=== PATIENT | female | born 1990 | race Hispanic/Latino ===

== ENCOUNTER 2021-07-30 16:44 | Emergency (ER) | payer OTHER ==
[2021-07-30 20:01] LABS: SARS-COV-2 RT PCR POSITIVE (NEGATIVE)
--- NOTE | 2021-07-30 20:28 | RAD REPORT ---
EXAM DESCRIPTION: RAD - Chest Single View - 07/30/2021 7:42 pm CLINICAL HISTORY: Cough;Dyspnea COMPARISON: None TECHNIQUE: AP portable chest image was obtained 07/30/2021 7:42 pm . Patient is 37 weeks , abd ominal shielding was utilized. FINDINGS: Lung volumes are low. No dense consolidations seen. There is minimal stranding in the mid right lung field and some minimal patchy opacities are present in the mid left lung field. Trachea is midline. Heart and vasculature are normal. No measurable pleural effusion and no pneumotho rax. No acute bony abnormality seen. No acute aortic findings suspected. IMPRESSION: Patchy bilateral lung parenchymal opacification present potentially artifact of shallow inspiration. Small bilateral pneumonias, including COVID-19 pneumonia, cannot be excluded.
[2021-07-30] MEDS ORDERED: NA CHLORIDE 0.9% 250 ML ONE (21:06)
[2021-07-30] MEDS ORDERED: CASIRIVIMAB/IMDEVIMAB 10 ML VIAL ONE (21:06)
--- NOTE | 2021-07-30 22:14 | EDPHYS ---
Physician Documentation [facility] Name: Nadia Haq Age: 31 yrs Sex: Female : 1990 Arrival Date: 07/30/2021 Time: 16:47 Bed 10 Private MD: ED Physician Vj Cowan HPI: 07/30 21:13 This 31 yrs old Female presents to ER via Ambulatory with complaints of rn Breathing Difficulty, Cough, Chest Pain, 37 wks gestation. 21:13 The patient or guardian reports cough, that is intermittent, described as mild, with no rn sputum, flu symptoms, low-grade fever, myalgias. Onset: The symptoms/episode began/occurred 4 day(s) ago. Severity of symptoms: At their worst the symptoms were moderate, in the emergency department the symptoms are unchanged. Modifying factors: The symptoms are alleviated by nothing, the symptoms are aggravated by nothing. Associated signs and symptoms: Pertinent positives: fever, rhinorrhea, sore throat, Cough. The patient has not experienced similar symptoms in the past. The patient has not recently seen a physician. Patient reports 4 days of cough, congestion, fatigue. Denies any chest pain. Reports deep breath results and coughing but no pain. No hemoptysis. Is 37 weeks . Diagnosed with gestational diabetes, not on any medication. Denies any abdominal pain/vaginal bleeding/contractions/leakage of fluid.. 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 Flu vaccine is not up to date. - Social history:: Smoking status: Patient denies any tobacco usage or history of. - Family history:: not pertinent. - Hospitalizations: : No recent hospitalization is reported. ROS: 21:13 Constitutional: Positive for chills and fever Eyes: Negative for injury, pain, redness, rn and discharge, ENT: Positive for congestion Cardiovascular: Negative for chest pain, palpitations, and edema, Respiratory: Positive for cough and mild shortness of breath, negative for pleuritic chest pain Abdomen/GI: Negative for abdominal pain, nausea, vomiting,and constipation, Back: Negative for injury and pain, : Negative for injury, bleeding, discharge, and swelling, MS/Extremity: Negative for injury and deformity, Skin: Negative for injury, rash, and discoloration, Neuro: Negative for numbness, tingling, and seizure. Exam: 21:13 Constitutional: This is a well developed, well nourished patient who is awake, alert, rn mild tachypnea Head/Face: Normocephalic, atraumatic. Eyes: Pupils equal round and reactive to light, extra-ocular motions intact. Lids and lashes normal. Conjunctiva and sclera are non-icteric and not injected. Cornea within normal limits. Periorbital areas with no swelling, redness, or edema. ENT: No stridor Cardiovascular: Tachycardic, regular. No pulse deficits Respiratory: Mild tachypnea, speaking full sentences, no retractions Abdomen/GI: Soft, non-tender, gravid uterus Skin: Warm, dry, no cyanosis MS/ Extremity: Pulses equal, no cyanosis. Neurovascular intact. Full, normal range of motion. Equal circumference. Neuro: Awake and alert, GCS 15 Vital Signs: 17:36 BP 125 / 74; Pulse 110; Resp 18; Temp 98.1; Pulse Ox 99% ; Weight 85.28 kg; Height 5 ll1 ft. 4 in. (162.56 cm); Pain 5/10; 20:00 BP 107 / 77; Pulse 109; Resp 24; Pulse Ox 98% ; vg1 21:00 BP 108 / 65; Pulse 100; Resp 22; Pulse Ox 95% on R/A; vg1 22:26 BP 113 / 74 LA; Pulse 90; Resp 18; Temp 98.9(O); Pulse Ox 97% on R/A; Pain 0/10; kc4 22:45 BP 121 / 74; Pulse 88; Resp 20; Temp 98.8(O); Pulse Ox 97% on R/A; Pain 0/10; kc4 22:56 BP 120 / 72; Pulse 88; Resp 18; Temp 98.9(O); Pulse Ox 97% ; Pain 0/10; kc4 23:26 BP 117 / 74; Pulse 90; Resp 18; Temp 98.8(O); Pulse Ox 98% on R/A; Pain 010; kc4 17:36 Body Mass Index 32.27 (85.28 kg, 162.56 cm) 1 22:26 finished Regen kc4 MDM: 19:45 Patient medically screened. rn 21:17 Differential Diagnosis: Influenza Upper Respiratory Infection Viral Syndrome Pneumonia rn Other Covid. Data reviewed: vital signs, nurses notes, lab test result(s), radiologic studies, plain films, and as a result, I will discharge patient. Data interpreted: Pulse oximetry: on room air is 98 %. Interpretation: normal. Test interpretation: by ED physician or midlevel provider: plain radiologic studies, Chest x-ray with mild bilateral infiltrates, could be early Covid pneumonia. Counseling: I had a detailed discussion with the patient and/or guardian regarding: the historical points, exam findings, and any diagnostic results supporting the discharge/admit diagnosis, lab results, radiology results, the need for outpatient follow up, to return to the emergency department if symptoms worsen or persist or if there are any questions or concerns that arise at home. Special discussion: I discussed with the patient/guardian in detail that at this point there is no indication for admission to the hospital. It is understood, however, that if the symptoms persist or worsen the patient needs to return immediately for re-evaluation. Based on the history and exam findings, there is no indication for further emergent testing or inpatient evaluation. I discussed with the patient/guardian the need to see the OB Gyne specialist for further evaluation of the symptoms. ED course: No oxygen requirement. Mild tachypnea and , offered Regeneron, understands risks and benefits, consented, will receive Regeneron and then DC home. [facility] has OB follow-up tomorrow. 07/30 17:40 Order name: Strep; Complete Time: 19:04 [facility] 07/30 18:37 Order name: Throat Culture [facility] 07/30 20:01 Order name: COVID-19/FLU A+B; Complete Time: 20:39 [facility] 07/30 17:40 Order name: Droplet/Contact Precautions; Complete Time: 20:04 [facility] 07/30 17:40 Order name: Labs collected and sent; Complete Time: 20:04 [facility] 07/30 17:40 Order name: O2 Per Protocol; Complete Time: 20:04 [facility] 07/30 19:09 Order name: XRAY Chest (1 view); Complete Time: 20:39 rn Administered Medications: 21:15 Drug: REGEN-COV Dose Pack 120 mg/mL-120 mg/mL (EUA) 600 mg Route: IV; Rate: calculated vg1 rate; Site: right antecubital; 22:22 Follow up: IV Status: Completed infusion kc4 Disposition Summary: 07/30/21 22:13 Discharge Ordered Location: Home rn Problem: new rn Symptoms: are unchanged rn Condition: Stable rn Diagnosis - SARS-associated coronavirus as the cause of diseases classified elsewhere rn - Pneumonia due to SARS-associated coronavirus rn Followup: rn - With: Private Physician - When: As needed - Reason: Recheck today's complaints, Re-evaluation by your physician Discharge Instructions: - Discharge Summary Sheet rn - COVID-19 rn - 10 Things You Can Do to Manage Your COVID-19 Symptoms at Home - [facility] rn - Viral Illness, Adult rn Forms: - Medication Reconciliation Form rn - Thank You Letter rn - Antibiotic telephonic rn - Prescription Opioid Use rn Signatures: Dispatcher [employer] EDMS Vj Cowan MD MD rn Garcia, Victoria, RN RN vg1 Daniella Ramos RN RN ll1 Alannah Robledo kc4 Corrections: (The following items were deleted from the chart) 18:06 17:40 Influenza Screen (A ordered. EDMS EDMS 18:06 17:40 Influenza Screen (A \T\ B)+BA.LAB.BRZ ordered. EDMS EDMS
--- NOTE | 2021-07-30 22:14 | ER ---
Nurse's Notes [facility] Name: Nadia Haq Age: 31 yrs Sex: Female : 1990 Arrival Date: 07/30/2021 Time: 16:47 Bed 10 Private MD: Diagnosis: SARS-associated coronavirus as the cause of diseases classified elsewhere;Pneumonia due to SARS-associated coronavirus Presentation: 07/30 17:36 Chief complaint: Patient states: SOB since Thursday, slight cough when deep breathing. ll1 No fever. SOB has gotten worse since yesterday. Loss taste yesterday. 37 weeks . G3, P1. Coronavirus screen: Vaccine status: Patient reports being unvaccinated. Client denies travel out of the [place] in the last 14 days. cough unrelated to allergies, difficulty breathing, headache, shortness of breath, loss of taste or smell, Client presents with at least one sign or symptom that may indicate coronavirus-19. Standard/surgical mask placed on the client. Ebola Screen: Patient denies travel to an Ebola-affected area in the 21 days before illness onset. Initial Sepsis Screen: Does the patient meet any 2 criteria? HR > 90 bpm. No. Patient's initial sepsis screen is negative. Does the patient have a suspected source of infection? Yes: Productive cough/pneumonia. Risk Assessment: Do you want to hurt yourself or someone else? Patient reports no desire to harm self or others. Onset of symptoms was July 27, 2021. 17:36 Method Of Arrival: Ambulatory ll1 17:36 Acuity: FLEX 3 ll1 Triage Assessment: 20:08 Respiratory: the patient has moderate shortness of breath. vg1 20:08 Respiratory: Onset: The symptoms/episode began/occurred Thursday07/26/21. vg1 23:24 General: Behavior is calm, cooperative, appropriate for age, quiet. 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 Flu vaccine is not up to date. - Social history:: Smoking status: Patient denies any tobacco usage or history of. - Family history:: not pertinent. - Hospitalizations: : No recent hospitalization is reported. Screenin:07 Abuse screen: Denies threats or abuse. Nutritional screening: No deficits noted. vg1 Tuberculosis screening: No symptoms or risk factors identified. Fall Risk No fall in past 12 months (0 pts). No secondary diagnosis (0 pts). No IV (0 pts). Ambulatory Aid- None/Bed Rest/Nurse Assist (0 pts). Gait- Normal/Bed Rest/Wheelchair (0 pts) Mental Status- Oriented to own ability (0 pts). Total Ramírez Fall Scale indicates No Risk (0-24 pts). Assessment: 20:04 General: Appears in no apparent distress. uncomfortable. Pain: Denies pain. Neuro: vg1 Level of Consciousness is awake, alert, obeys commands, Oriented to person, place, time, situation. Cardiovascular: Patient's skin is warm and dry. Respiratory: Reports shortness of breath at rest on exertion cough that is productive, Airway is patent Respiratory effort is even, unlabored, Respiratory pattern is tachypnea Breath sounds are clear bilaterally. GI: Patient currently denies diarrhea, nausea, vomiting. : No signs and/or symptoms were reported regarding the genitourinary system. EENT: No signs and/or symptoms were reported regarding the EENT system. Reports loss of taste and smell. Derm: Skin is intact, is healthy with good turgor. Musculoskeletal: Circulation, motion, and sensation intact. 21:10 Reassessment: Patient appears in no apparent distress at this time. No changes from vg1 previously documented assessment. Patient and/or family updated on plan of care and expected duration. Pain level reassessed. Patient is alert, oriented x 3, equal unlabored respirations, skin warm/dry/pink. 23:24 Cardiovascular: Capillary refill < 3 seconds is > 3 seconds Patient's skin is warm and kc4 dry. Rhythm is regular. Vital Signs: 17:36 BP 125 / 74; Pulse 110; Resp 18; Temp 98.1; Pulse Ox 99% ; Weight 85.28 kg; Height 5 ll1 ft. 4 in. (162.56 cm); Pain 5/10; 20:00 BP 107 / 77; Pulse 109; Resp 24; Pulse Ox 98% ; vg1 21:00 BP 108 / 65; Pulse 100; Resp 22; Pulse Ox 95% on R/A; vg1 22:26 BP 113 / 74 LA; Pulse 90; Resp 18; Temp 98.9(O); Pulse Ox 97% on R/A; Pain 0/10; kc4 22:45 BP 121 / 74; Pulse 88; Resp 20; Temp 98.8(O); Pulse Ox 97% on R/A; Pain 0/10; kc4 22:56 BP 120 / 72; Pulse 88; Resp 18; Temp 98.9(O); Pulse Ox 97% ; Pain 0/10; kc4 23:26 BP 117 / 74; Pulse 90; Resp 18; Temp 98.8(O); Pulse Ox 98% on R/A; Pain 0/10; kc4 17:36 Body Mass Index 32.27 (85.28 kg, 162.56 cm) ll1 22:26 finished Regen kc4 ED Course: 16:47 Patient arrived in ED. am2 17:37 Triage completed. ll1 17:38 Arm band placed on. ll1 19:08 Vj Cowan MD is Attending Physician. rn 19:42 XRAY Chest (1 view) In Process Unspecified. EDMS 20:03 Chanelle Mercedes, RN is Primary Nurse. vg1 20:07 Patient has correct armband on for positive identification. Bed in low position. Call vg1 light in reach. Adult w/ patient. 21:10 Inserted saline lock: 20 gauge in right antecubital area, using aseptic technique. vg1 22:43 No provider procedures requiring assistance completed. kc4 23:27 IV discontinued, intact, bleeding controlled, No redness/swelling at site. Pressure kc4 dressing applied. Administered Medications: 21:15 Drug: REGEN-COV Dose Pack 120 mg/mL-120 mg/mL (EUA) 600 mg Route: IV; Rate: calculated vg1 rate; Site: right antecubital; 22:22 Follow up: IV Status: Completed infusion kc4 Outcome: 22:13 Discharge ordered by . rn 23:25 Discharged to home ambulatory, with significant other. kc4 23:25 Condition: stable 23:25 Discharge instructions given to patient, significant other, Instructed on discharge instructions, follow up and referral plans. medication usage, Demonstrated understanding of instructions, follow-up care, medications. 23:27 Patient left the ED. kc4 Signatures: Dispatcher [employer] EDMS Vj Cowan MD MD rn Moreno, Amanda am2 Chanelle Mercedes RN RN vg1 Daniella Ramos RN RN ll1 Alannah Robledo kc4 Corrections: (The following items were deleted from the chart) 17:38 17:36 Chief complaint: Patient states: SOB since Thursday, slight cough when deep ll1 breathing. No fever. SOB has gotten worse since yesterday. Loss taste yesterday. ll1 22:44 22:26 BP 113 / 74; Pulse 90bpm; Resp 18bpm; Pulse Ox 97% RA; Temp 98.9F Oral; Pain kc4 0/10; kc4 23:10 22:26 BP 113 / 74 L Arm; Pulse 90bpm; Resp 18bpm; Pulse Ox 97% RA; Temp 98.9F Oral; kc4 Pain 0/10; finished rogen ; kc4
[2021-07-31 00:39] VITALS: BP 107/77; O2SAT 98
== END 2021-07-30 23:27 | disposition home or self-care (01) ==
LOC: ER 16:44
DX: O98.513 Other viral diseases complicating pregnancy, third trimester (principal); U07.1 COVID-19; O99.513 Diseases of the respiratory system complicating pregnancy, third trimester; J12.82 Pneumonia due to coronavirus disease 2019; Z3A.37 37 weeks gestation of pregnancy
CPT/HCPCS: 96365; 87070; 87081; 0240U; 71045; 99284; J7050